=== PATIENT | female | born 1955 ===

== ENCOUNTER 2022-07-23 17:23 | Emergency (ER) | payer MEDICARE, OTHER | END 2022-07-23 18:00 | disposition home or self-care (01) | LOC: NAV ERS 17:23 | DX: S90.32XA Contusion of left foot, initial encounter (principal); X58.XXXA Exposure to other specified factors, initial encounter ==

== ENCOUNTER 2024-02-02 13:19 | Emergency (ER) | payer MEDICARE, OTHER ==
[2024-02-02] MEDS ORDERED: Naproxen 500 MG TAB ONE (14:28)
== END 2024-02-02 14:50 | disposition home or self-care (01) ==
LOC: NAV ERS 13:19
DX: S80.11XA Contusion of right lower leg, initial encounter (principal); J45.909 Unspecified asthma, uncomplicated; Z79.51 Long term (current) use of inhaled steroids; E03.9 Hypothyroidism, unspecified; Z79.890 Hormone replacement therapy; V09.9XXA Pedestrian injured in unspecified transport accident, initial encounter

== ENCOUNTER 2024-05-19 15:58 | Emergency (ER) | payer MEDICARE, OTHER ==
[2024-05-19 16:17] LABS: Bilirubin Negative (Negative); Blood, Urine Negative (Negative); Clarity Clear (Clear); Glucose, Urine (Dipstick) Negative (Negative); Ketone, Urine Negative (Negative); Leukocyte Negative (Negative); Nitrite Negative (Negative); Protein, Urine (Dipstick) Negative (Neg-Trace); Specific Gravity, Urine 1.015 (1.005-1.030); Urobilinogen 0.2 mg/dL (Less than 2)
[2024-05-19 16:26] LABS: CAUTI Indications for Culture Pelvic or flank pain; RBC/HPF 0-3 HPF (0-3); Urine Culture Reflex No No; WBC/HPF None Seen HPF (0-3)
[2024-05-19] MEDS ORDERED: Ketorolac Tromethamine 30 MG (1 mL) VIAL ONE (17:12)
== END 2024-05-19 17:40 | disposition home or self-care (01) ==
LOC: NAV ERS 15:58
DX: M54.50 Low back pain, unspecified (principal); E78.00 Pure hypercholesterolemia, unspecified; Z79.899 Other long term (current) drug therapy
CPT/HCPCS: 72100; 81001; 96372; J1885

== ENCOUNTER 2024-09-22 19:23 | Emergency (ER) | payer MEDICARE, OTHER ==
[2024-09-22] MEDS ORDERED: traMADol HCl 50 MG TAB ONE (19:32)
== END 2024-09-22 20:30 | disposition home or self-care (01) ==
LOC: NAV ERS 19:23
DX: S83.92XA Sprain of unspecified site of left knee, initial encounter (principal); E78.00 Pure hypercholesterolemia, unspecified; E03.9 Hypothyroidism, unspecified; Z79.899 Other long term (current) drug therapy; Z79.82 Long term (current) use of aspirin; W01.0XXA Fall on same level from slipping, tripping and stumbling without subsequent striking against object, initial encounter
CPT/HCPCS: 99283

== ENCOUNTER 2024-11-02 18:10 | Emergency (ER) | payer MEDICARE, OTHER ==
[2024-11-02] MEDS ORDERED: Bacitracin 1 PK ONE (19:39)
[2024-11-02] MEDS ORDERED: Boostrix 0.5 ML (Tdap) VIAL (>/=7 yrs of age) ONE (19:40)
== END 2024-11-02 19:50 | disposition home or self-care (01) ==
LOC: NAV ERS 18:10
DX: S61.411A Laceration without foreign body of right hand, initial encounter (principal); E78.00 Pure hypercholesterolemia, unspecified; Z23 Encounter for immunization; Z79.899 Other long term (current) drug therapy; Z79.82 Long term (current) use of aspirin; W26.8XXA Contact with other sharp object(s), not elsewhere classified, initial encounter
CPT/HCPCS: 90471; 90715

== ENCOUNTER 2024-11-19 17:43 | Emergency (ER) | payer MEDICARE, OTHER ==
[2024-11-19 18:06] LABS: #Basophils 0.1 thou/uL (0.0-0.2); #Eosinophils 0.1 thou/uL (0.0-0.7); #Lymphocytes 2.2 thou/uL (1.20-3.40); #Neutrophils 5.5 thou/uL (1.40-6.50); %Eosinophils 0.8 % (0.0-10.0); %Lymphocytes 24.9 % (21.0-51.0); %Neutrophils 62.3 % (42.0-75.0); Hematocrit 39.9 % (36.0-47.0); Hemoglobin 12.6 g/dL (12.0-16.0); Mean Corpuscular HGB CONC 31.7 g/dL (32.0-36.0); Mean Corpuscular Hemoglobin 29.5 pg (27.0-31.0); Mean Platelet Volume 9.9 fL (7.4-10.4); Platelet Count 179 10x3/uL (130-400); RBC Distribution Width 12.7 % (11.5-14.5); Red Blood Cell (RBC) Count 4.29 mill/uL (4.20-5.40); White Blood Cell (WBC) Count 8.8 10x3/uL (4.8-10.8)
[2024-11-19 18:25] LABS: Troponin I Less than 0.010 ng/mL (< 0.028)
[2024-11-19] MEDS ORDERED: Aspirin Chewable 81 MG TAB ONE (18:26)
[2024-11-19 18:30] LABS: ALT (SGPT) 24 U/L (8-55); AST (SGOT) 29 U/L (5-34); Alkaline Phosphatase 54 U/L (40-110); Anion Gap 12 mmol/L (10-20); BUN (Urea Nitrogen) 11 mg/dL (9.8-20.1); Bilirubin, Total 0.3 mg/dL (0.2-1.2); Calc. Creatinine Clearance 0 mL/min (70-130); Calcium 9.2 mg/dL (7.8-10.44); Carbon Dioxide 29 mmol/L (23-31); Chloride 103 mmol/L (98-107); Estimated GFR 86; Globulin 2.9 g/dL (2.4-3.5); Glucose 100 mg/dL (80-115); Potassium 3.4 mmol/L (3.5-5.1); Protein, Total 6.9 g/dL (5.8-8.1); Sodium 141 mmol/L (136-145)
== END 2024-11-19 19:13 | disposition home or self-care (01) ==
LOC: NAV ERS 17:43
DX: R07.89 Other chest pain (principal); R41.9 Unspecified symptoms and signs involving cognitive functions and awareness
CPT/HCPCS: 71045; 80053; 84484; 85025; 93005